=== PATIENT | female | born 1965 | race Caucasian/White ===

== ENCOUNTER 2016-10-12 15:34 | Emergency (ER) | payer OTHER ==
[~2016-10-12] VITALS: Ht 162.6 cm; Wt 75.3 kg
[~2016-10-12 15:34] MED LIST: GABAPENTIN100 M2 PO; HUMALOG PEN100 U/ML SC; LANTUS SOLOS100 U/M1; METFORMIN HCL1000 MG PO; MOTRIN800 MG PO; OMEPRAZOLE DR20 M1 PO; PENTOXIFYL XR400 M1 PO
[2016-10-12 18:03] VITALS: BP 130/68
== END 2016-10-12 18:03 | disposition home or self-care (01) ==
LOC: ED 15:34
DX: M75.32 Calcific tendinitis of left shoulder (principal); I10 Essential (primary) hypertension; E11.9 Type 2 diabetes mellitus without complications; Z79.84 Long term (current) use of oral hypoglycemic drugs; Z79.899 Other long term (current) drug therapy
CPT/HCPCS: J1885

== ENCOUNTER 2019-11-07 20:50 | Emergency (ER) | payer OTHER ==
[~2019-11-07] VITALS: Ht 162.6 cm; Wt 73.0 kg
[2019-11-07 20:59] VITALS: Ht 162.6 cm; Wt 73.0 kg
[2019-11-07 22:19] VITALS: BP 129/86
[2019-11-09] MEDS ORDERED: VICTOZA6 MG/M1 (23:25)
[2019-11-09] MEDS ORDERED: LANTI (23:25)
[2019-11-09] MEDS ORDERED: METFORMIN500 M1 (23:25)
[2019-11-09] MEDS ORDERED: ACID REDUCER20 MG (23:26)
[2019-11-11] MEDS ORDERED: KEFLEX500 M1 PO (11:15)
[2019-11-11] MEDS ORDERED: AUGMENTIN 875-1 EACH PO (11:42)
[2019-11-11] MEDS ORDERED: CLEOCIN HCL300 MG PO (11:42)
== END 2019-11-07 22:19 | disposition home or self-care (01) ==
LOC: ED 20:50
DX: L02.511 Cutaneous abscess of right hand (principal)
CPT/HCPCS: 82962; J0696; J2001